=== PATIENT | female | born 1980 | race Caucasian/White ===

== ENCOUNTER 2019-02-15 18:40 | Emergency (ER) | payer BC, OTHER ==
[2019-02-15] MEDS ORDERED: predniSONE 20 MG Tab PO ONE (18:55)
--- NOTE | 2019-02-15 19:00 | EDM.PDOC ---
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 usually gives self epipen but left it at home but did have a pred pill and took it. presently feeling better. prefer P.O than IM. state pred 20mg work well. ED ROS ALLERGIC REACTION - Review of Systems Review Of Systems: ROS reveals no pertinent complaints other than HPI. ED EXAM GENERAL NO PERIP PULSE - Physical Exam Exam: See Below Exam Limited By: No Limitations General Appearance: Alert, WD/WN, Anxious, Mild Distress Ears: Hearing Grossly Normal Throat/Mouth: Normal Inspection, Normal Oropharynx, Normal Voice, No Airway Compromise, Other (no notible edema) Head: Atraumatic Neck: Non-Tender, Full Range of Motion Respiratory/Chest: No Respiratory Distress, Lungs Clear, Normal Breath Sounds Cardiovascular: Regular Rate, Rhythm GI/Abdominal: Soft, Non-Tender Neurological: Alert, Oriented, Normal Cognition, Normal Gait, No Motor/Sensory Deficits Psychiatric: Anxious Skin Exam: Warm, Dry, Normal Color Lymphatic: No Adenopathy Course - Vital Signs Last Recorded V/S: Last Vital Signs Temp 36.6 C 02/15/19 18:47 Pulse 91 02/15/19 18:47 Resp 21 H 02/15/19 18:47 BP 120/80 02/15/19 18:47 Pulse Ox 100 02/15/19 18:47 - Orders/Labs/Meds Orders: Active Orders 24 hr Category Date Time Status predniSONE Med 02/15/19 18:55 Once 20 mg PO ONETIME ONE Departure - Departure Time of Disposition: 19:00 Disposition: Home, Self-Care 01 Condition: Good Clinical Impression: Food allergy Allergy Qualifiers: Encounter type: initial encounter Qualified Code(s): T78.40XA - Allergy, unspecified, initial encounter - Discharge Information Instructions: Food Allergy, [id number] Additional Instructions: 1) rest 2) recheck if there is any change or concern rx given; medrol dospak - My Orders Last 24 Hours: My Active Orders 02/15/19 18:55 predniSONE 20 mg PO ONETIME ONE - Assessment/Plan Last 24 Hours: My Active Orders 02/15/19 18:55 predniSONE 20 mg PO ONETIME ONE
[2019-02-15] MEDS ORDERED: predniSONE 20 MG Tab ONE (19:05)
== END 2019-02-15 19:08 | disposition home or self-care (01) ==
LOC: DL.ED 18:40
DX: T78.1XXA Other adverse food reactions, not elsewhere classified, initial encounter (principal); R07.0 Pain in throat
CPT/HCPCS: 99283; A9270